=== PATIENT | female | born 1990 | race Caucasian/White ===

== ENCOUNTER 2019-09-09 08:39 | Inpatient (IN) ==
[2019-09-09] MEDS ORDERED: ZOFRAN ODT PO PRN (12:39)
[2019-09-09] MEDS ORDERED: LIBRIUM PO PRN (12:39)
[2019-09-09] MEDS ORDERED: NICODERM PATCH TD PRN (12:39)
[2019-09-09] MEDS ORDERED: SENOKOT PO PRN (12:39)
[2019-09-09] MEDS ORDERED: ZOFRAN IV PRN (12:39)
[2019-09-09] MEDS ORDERED: MAALOX PLUS LIQUID PO PRN (12:39)
[2019-09-09] MEDS ORDERED: DESYREL PO PRN (12:39)
[2019-09-09] MEDS ORDERED: TYLENOL PO PRN (12:39)
[2019-09-09] MEDS ORDERED: BENTYL PO PRN (12:39)
[2019-09-09] MEDS ORDERED: PHENOBARBITAL IV PRN (12:39)
[2019-09-09] MEDS ORDERED: D5W 1,000 ML IV PRN (12:39)
[2019-09-09] MEDS ORDERED: IMODIUM PO PRN (12:39)
[2019-09-09] MEDS ORDERED: DULCOLAX PR PRN (12:39)
[2019-09-09] MEDS ORDERED: TUBERSOL ID ONE (12:39)
[2019-09-09] MEDS ORDERED: ATARAX PO PRN (12:39)
[2019-09-09] MEDS ORDERED: SINEMET 25/100 PO PRN (12:39)
[2019-09-09 13:36] LABS: AMYLASE 32 U/L (20-200); LIPASE 15 U/L (13-60)
[2019-09-09 13:38] LABS: AGAP 12; ALBUMIN 3.7 g/dL (3.5-5.0); ALKALINE PHOSPHATASE 75 U/L (32-104); BUN 5 mg/dL (8-22); CALCIUM 8.7 mg/dL (8.8-10.2); CHLORIDE 106 mmol/L (98-107); COSMO 281; CREATININE 0.8 mg/dL (0.5-0.9); ESTIMATED GFR > 60; GLUCOSE 118 mg/dL (70-104); GOT 10 U/L (10-30); GPT 10 U/L (10-36); POTASSIUM 3.8 mmol/L (3.5-5.1); SODIUM 142 mmol/L (136-145); TCO2 24 mmol/L (25-35); TOTAL PROTEIN 6.1 g/dL (6.3-8.3)
[2019-09-09 13:45] LABS: INR 0.87; PROTIME 12.2 Seconds (11.0-16.0)
[2019-09-09 13:48] LABS: HEMATOCRIT 34.3 % (37.0-47.0); HEMOGLOBIN 10.9 g/dL (12.0-16.0); MCH 29.5 PG (27-31); MCHC 31.8 g/dL (33-37); MPV 11.4 FL (7.4-10.4); RBC 3.69 XMIL (4.2-5.4); RDW 13.6 % (11.5-14.5); WBC 5.58 X1000 (4.8-10.8)
[2019-09-09 14:39] LABS: URINE SOURCE VOIDED
[2019-09-09 14:49] LABS: BILIRUBIN URINE NEGATIVE (NEGATIVE); BLOOD URINE 4+ (NEGATIVE); CLARITY SL. CLOUDY (CLEAR); COLOR YELLOW; GLUCOSE URINE NEGATIVE (NEGATIVE); KETONE URINE NEGATIVE (NEGATIVE); LEUKOCYTES URINE TRACE (NEGATIVE); NITRITE URINE NEGATIVE (NEGATIVE); PROTEIN URINE NEGATIVE (NEGATIVE); SP GRAVITY URINE 1.015; UROBILINOGEN URINE NORMAL
[2019-09-09 14:57] LABS: UR AMPHETAMINES QUAL NONE DETECTED (NONE DETECT); UR BARBITUATES QUAL NONE DETECTED (NONE DETECT); UR BENZODIAZEPIN QUAL NONE DETECTED (NONE DETECT); UR CANNABINOIDS QUAL PRESUMPTIVE POSITIVE (NONE DETECT); UR COCAINE QUAL NONE DETECTED (NONE DETECT); UR METHADONE QUAL NONE DETECTED (NONE DETECT); UR METHAMPHETAMINE QUAL NONE DETECTED (NONE DETECT); UR OPIATES QUAL NONE DETECTED (NONE DETECT); UR OXYCODONE QUAL NONE DETECTED (NONE DETECT); UR PCP QUAL NONE DETECTED (NONE DETECT); UR PROPOXYPHENE QUAL NONE DETECTED (NONE DETECT); UR TCA QUAL NONE DETECTED (NONE DETECT)
[2019-09-09 15:01] LABS: URINE BACTERIA 1+ /HFP; URINE EPITHELIAL CELLS >10 /HPF (<10); URINE RBC TNTC /HPF (<10); URINE WBC <10 /HPF (<10)
[2019-09-09 15:02] LABS: URINE CAST NONE SEEN /LPF; URINE CRYSTAL NONE SEEN /HPF; URINE YEAST NONE SEEN /HPF
[2019-09-09] MEDS: LIBRIUM PO SCH ×2 (15:37→21:02)
[2019-09-09] MEDS: MOTRIN PO PRN (18:10)
[2019-09-09] MEDS: ROBAXIN PO PRN (18:10)
[2019-09-09] MEDS: SEROQUEL PO PRN (21:35)
[2019-09-10] MEDS: LIBRIUM PO SCH ×4 (02:50→22:45)
[2019-09-10] MEDS: PROTONIX PO SCH (06:17)
--- NOTE | 2019-09-10 08:48 | HISTORY AND PHYSICAL ---
CHIEF COMPLAINT: Nausea, vomiting. HISTORY OF PRESENT ILLNESS: The patient is a 29-year-old female, who presented to [facility] program secondary to nausea, vomiting, abdominal pain, myalgias. Notes that she has a rash on her arm where she has injected recently. Denies any fevers. SOCIAL HISTORY: Patient is single. She is unemployed. Lives at [place] PAST MEDICAL HISTORY: Significant for hypertension, bulging disks at L3-4 and S1-2, history of sciatica, fibromyalgia, depression. MEDICATIONS: Lisinopril 20/12.5, Zanaflex, Zoloft 50, Neurontin 600 twice daily, Percocet 10 daily. ALLERGIES: No known drug allergies. REVIEW OF SYSTEMS: Her CIWA score is 22 secondary to nausea, vomiting, abdominal pain, diarrhea, myalgias, paresthesias. Denies any headaches, blurred vision, change in vision. Denies any focalized numbness, tingling, weakness. Does have a rash on her arm where she injected recently. Denies diarrhea, constipation, melena, hematochezia, dysuria, urinary frequency. SUBSTANCE ABUSE HISTORY: The patient has not been in treatment in the past, but substance abuse has caused financial and work problems. History of safety plan with [facility]. She was evicted from [facility] [employer]. Started alcohol at 11, currently drinks rarely. Started marijuana at 18, currently uses rarely. Started depressants at 12, currently uses rarely. Started stimulants at 11, currently is using meth IV or smoking daily, at least 2 g for the past 3 months. Started cocaine at 28, only used once. Started opiates at 13, currently takes less than she is prescribed. Started smoking at 10, currently smokes half pack a day. FAMILY HISTORY: Noncontributory. PHYSICAL EXAMINATION: VITAL SIGNS: Reviewed. GENERAL: Patient is awake, alert. She is in no respiratory distress. HEENT: Normocephalic. NECK: Supple. CARDIOVASCULAR: Regular rate. No murmurs. CHEST: Clear. ABDOMEN: Soft, nondistended. EXTREMITIES: Moves all extremities. NEUROLOGIC: No focal changes, although she is jittery and anxious on exam. SKIN: She has got an indurated area that is warm and painful to touch in the area of previous injection. ASSESSMENT: 1. Cellulitis. 2. Nausea and vomiting. 3. Abdominal pain. 4. Myalgias. 5. Paresthesias. 6. Polysubstance use and abuse. PLAN: We will continue patient in the hospital, place her on antibiotics and begin counseling. Place her on high-dose Librium. Will wean as tolerated. Hopefully, she will continue to further inpatient treatment on discharge. cc: Kyaw Ramos MD
[2019-09-10] MEDS: FOLIC ACID PO SCH (08:50)
[2019-09-10] MEDS: THERA M PLUS PO SCH (08:50)
[2019-09-10] MEDS: VITAMIN B-1 PO SCH (08:50)
[2019-09-10] MEDS: ROBAXIN PO PRN ×2 (08:52→20:37)
[2019-09-10] MEDS: ROCEPHIN 1 GM in NS 50 ML IV SCH (09:00)
--- NOTE | 2019-09-10 18:34 | PROGRESS NOTE ---
DATE: 09/10/2019 SUBJECTIVE: Patient notes that she is feeling okay. Still has lots of redness and swelling on her calf. Her right forearm is a little bit better. Left calf still problematic. Denies any fevers, chills. States she feels better, but still does not feel back to normal. PHYSICAL EXAMINATION: Vital Signs: Reviewed. Temperature 97 degrees, pulse 52, respiratory rate 18, BP 107/59. General: Patient is pleasant. She is in no respiratory distress. HEENT: Normocephalic. Neck: Supple. Cardiovascular: Regular rate. No murmurs. Chest: Clear. Abdomen: Soft. Extremities: Moves all extremities. Neurologic: No changes. ASSESSMENT: 1. Nausea, vomiting, abdominal pain. 2. [*] 3. Paresthesias. 4. Paroxysmal sweating. 5. Polysubstance abuse, withdrawal and stabilization. PLAN: Will continue patient in the hospital. Continue to follow. Continue antibiotics for her skin infection. Further orders as [*]. cc: Kyaw Ramos MD
[2019-09-10] MEDS: MOTRIN PO PRN (20:37)
[2019-09-10] MEDS: SEROQUEL PO PRN (20:37)
[2019-09-10] MEDS ORDERED: ZOLOFT PO SCH (21:00)
[2019-09-11] MEDS: PROTONIX PO SCH ×2 (05:07→06:02)
[2019-09-11] MEDS: LIBRIUM PO SCH (05:07)
[2019-09-11] MEDS: MOTRIN PO PRN (08:01)
[2019-09-11] MEDS: FOLIC ACID PO SCH (08:01)
[2019-09-11] MEDS: THERA M PLUS PO SCH (08:01)
[2019-09-11] MEDS: ROCEPHIN 1 GM in NS 50 ML IV SCH (08:01)
[2019-09-11] MEDS: VITAMIN B-1 PO SCH (08:01)
[2019-09-11] MEDS ORDERED: ATARAX PO PRN (08:46)
[2019-09-11 12:29] VITALS: BP 110/40
--- NOTE | 2019-09-11 13:27 | PROGRESS NOTE ---
DATE: 09/11/2019 SUBJECTIVE: Patient notes that she is feeling okay. She is still tired and fatigued. Denies any fevers. Notes that the erythematous area on her left lower extremity is improving slowly. Her right forearm is much better. Denies any fevers or chills. PHYSICAL EXAMINATION: Vital Signs: Reviewed and stable. She is awake and alert. She is in no respiratory distress. Temperature 98 degrees, pulse 49 to 58, respiratory 20, and BP 157/64. General: Patient is pleasant. She is lying in the bed. HEENT: Normocephalic. Neck: Supple. Cardiovascular: Regular rate. No murmurs. Chest: Clear. Abdomen: Soft. Extremities: Moves all extremities. Neurologic: No changes. ASSESSMENT: 1. Nausea and vomiting. 2. Abdominal pain. 3. Myalgias. 4. Paresthesias. 5. Cellulitis, right forearm and left lower extremity. 6. Tremors. 7. Paresthesias. 8. Polysubstance use and abuse. PLAN: We will continue patient in the hospital. Continue antibiotics. Continue to wean Librium. Continue counseling. Further orders as needed. Expect to be in the hospital 1 to 2 more days. cc: Kyaw Ramos MD
--- NOTE | 2019-09-14 09:32 | DISCHARGE SUMMARY ---
ADMISSION DATE: 09/09/2019 DISCHARGE DATE: 09/11/2019 DISCHARGE DIAGNOSES: 1. Cellulitis right forearm, left hand secondary to polysubstance use, abuse. 2. Nausea, vomiting, abdominal pain, myalgias. CONSULTATIONS: None. PROCEDURES: None. BRIEF HOSPITAL COURSE: The patient is a 29-year-old female who presented to [facility] program secondary to nausea, vomiting, abdominal pain, as well as substance abuse. Treated in the usual fashion, placed on high-dose Librium. Also placed on antibiotics. Tolerated hospital stay well. Each day I performed counseling with Ms. Maciel. [*]. Encourage or remind her to use and abuse. They need to continue antibiotics at home. cc: Kyaw Ramos MD
== END 2019-09-11 16:00 | disposition left against medical advice (07) | DRG 894 ==
LOC: P.DIRADM 12:04 → P.MEDSURG 12:07
PROVIDERS: ADMIT Family Medicine; ATTEND Family Medicine